=== PATIENT | female | born 1975 ===

== ENCOUNTER 2018-06-21 10:31 | Outpatient (CLI) | payer OTHER ==
[~2018-06-21] VITALS: Ht 162.6 cm; Wt 54.4 kg
[2018-06-21] MEDS ORDERED: OFLOXACIN5 ML OTIC (12:35)
== END 2018-06-21 10:45 | disposition home or self-care (01) ==
LOC: OFIC 805 10:31
DX: H61.21 Impacted cerumen, right ear (principal); J31.0 Chronic rhinitis; H62.41 Otitis externa in other diseases classified elsewhere, right ear

== ENCOUNTER 2018-07-18 09:26 | Outpatient (CLI) | payer OTHER ==
[~2018-07-18 09:26] MED LIST: OFLOXACIN5 ML OTIC
== END 2018-07-18 09:30 | disposition home or self-care (01) ==
LOC: LAB 09:26
DX: D68.8 Other specified coagulation defects (principal); E11.9 Type 2 diabetes mellitus without complications